=== PATIENT | male | born 1975 ===

== ENCOUNTER 2021-08-10 15:33 | Emergency (ER) | payer SELFPAY ==
[2021-08-10 15:40] VITALS: BP 148/89
== END 2021-08-10 18:37 | disposition left against medical advice (07) ==
LOC: ED 15:33
DX: R42 Dizziness and giddiness (principal); Z53.21 Procedure and treatment not carried out due to patient leaving prior to being seen by health care provider

== ENCOUNTER 2021-08-22 13:13 | Emergency (ER) | payer SELFPAY ==
[2021-08-22 13:27] VITALS: BP 165/104
--- NOTE | 2021-08-22 13:49 | XRay Report ---
CHEST 2 VIEWS INDICATION / CLINICAL INFORMATION: Shortness of breath. COMPARISON: None available. FINDINGS: SUPPORT DEVICES: None. HEART / MEDIASTINUM: No significant abnormality. LUNGS / PLEURA: No significant pulmonary or pleural abnormality. No pneumothorax. ADDITIONAL FINDINGS: No significant additional findings. IMPRESSION: 1. No acute findings. Signer Name: Kuldip Allen MD Signed: 08/22/2021 1:44 PM Workstation Name: [id number]
[2021-08-22 15:06] LABS: Basophils % (Auto) 0.5 % (0.0-1.8); Eosinophils # (Auto) 0.1 K/mm3 (0.0-0.4); Eosinophils % (Auto) 1.3 % (0.0-4.3); Hematocrit 38.9 % (35.5-45.6); Hemoglobin 12.9 gm/dl (11.8-15.2); Lymphocytes # (Auto) 2.4 K/mm3 (1.2-5.4); Lymphocytes % (Auto) 25.1 % (13.4-35.0); Mean Corpuscular HGB Conc 33 % (32-34); Mean Corpuscular Volume 85 fl (84-94); Monocytes # (Auto) 0.6 K/mm3 (0.0-0.8); Monocytes % (Auto) 5.9 % (0.0-7.3); Platelet Count 200 K/mm3 (140-440); Red Blood Count 4.57 M/mm3 (3.65-5.03); Red Cell Distribution Width 15.3 % (13.2-15.2)
[2021-08-22 15:28] LABS: BUN/Creatinine Ratio 8; Blood Urea Nitrogen 11 mg/dL (9-20); Calcium 8.9 mg/dL (8.4-10.2); Hemolysis Index 2
--- NOTE | 2021-08-22 16:38 | Emergency Department Report ---
ED Chest Pain HPI - General Chief Complaint: Dyspnea/Respdistress Stated Complaint: EAR ACHE/DIZZY Time Seen by Provider: 08/22/21 16:31 Source: patient Mode of arrival: Ambulatory Limitations: No Limitations - History of Present Illness Initial Comments: 46-year-old black male with a past medical history of hypertension and hyperlipidemia presents to the emergency department for evaluation of few day history of intermittent chest pain, few month history of right ear pain, and dizziness and headache that started this morning. He states that he ran out of his blood pressure and hyperlipidemia medications last week then 4 to 5 days ago he started started to have intermittent left chest pain. He states that pain was nonradiating, worse with some movement and inspiration, and associated with some shortness of breath. He states that he has had a headache with pressure in his eyes for the last 2 days then he woke up this morning with worsening headache and some dizziness while he was at work today. He also complains of right ear pain and drainage for few months. He states that he had gotten some better but the last couple days pain has been worse and he has had purulent drainage coming from the ear. He did denies fever. MD Complaint: chest pain -: Gradual, days(s) (4-5) Onset: during rest Pain Location: left chest Pain Radiation: none Severity: moderate Severity scale (0 -10): 5 Quality: aching Consistency: intermittent Worsens With: inspiration, movement re: dyspnea. denies: nausea, vomting, diaphoresis, sense of impending doom Other Symptoms: denies: cough, fever, syncope, rash, acid taste in mouth, leg swelling, palpitations, burping Treatments Prior to Arrival: none Aspirin use within the Past 7 Days: (0) No - Related Data Previous Rx's Medication Instructions Recorded Last Taken Type AtorvaSTATin 10 mg PO QHS #30 tab 08/22/21 Unknown Rx Neomy/Polymyx B/Hc (Otic) Soln 4 drops RTEAR QID #1 bottle 08/22/21 Unknown Rx [Cortisporin (Otic) Soln] hydroCHLOROthiazide [HCTZ] 25 mg PO QDAY #30 tablet 08/22/21 Unknown Rx lisinopriL [Lisinopril] 20 mg PO DAILY #30 tab 08/22/21 Unknown Rx methylPREDNISolone [Medrol 4MG 4 mg PO DAILY #1 pack 08/22/21 Unknown Rx DOSEPAK (21 tabs)] Allergies Allergy/AdvReac Type Severity Reaction Status Date / Time No Known Allergies Allergy Verified 08/22/21 13:28 Heart Score - HEART Score History: Slightly suspicious EKG: Normal Age: 45-65 Risk factors: 1-2 risk factors Troponin: < normal limit HEART Score: 2 - EKG Read Time Time EKG Completed: 16:52 EKG Read Time: 16:59 - Critical Actions Critical Actions: 0-3 pts:0.9-1.7%risk of adverse cardiac event.Candidate for discharge ED Review of Systems ROS: Stated complaint: EAR ACHE/DIZZY Other details as noted in HPI Comment: All other systems reviewed and negative Constitutional: denies: chills, diaphoresis, fever, weakness Eyes: denies: vision change ENT: ear pain, congestion. denies: dental pain, hearing loss, epistaxis Respiratory: shortness of breath. denies: cough, orthopnea, SOB with exertion, SOB at rest, stridor, wheezing Cardiovascular: chest pain. denies: palpitations, dyspnea on exertion, orthopnea, edema, syncope, paroxysmal nocturnal dyspnea Gastrointestinal: denies: abdominal pain, nausea, vomiting, diarrhea, hematemesis, melena, hematochezia Genitourinary: denies: urgency, dysuria, frequency, hematuria Musculoskeletal: denies: back pain Skin: denies: rash, lesions Neurological: headache. denies: weakness, numbness, confusion, abnormal gait, vertigo ED Past Medical Hx - Medications Home Medications: Home Medications Medication Instructions Recorded Confirmed Last Taken Type AtorvaSTATin 10 mg PO QHS #30 tab 08/22/21 Unknown Rx Neomy/Polymyx B/Hc (Otic) Soln 4 drops RTEAR QID #1 bottle 08/22/21 Unknown Rx [Cortisporin (Otic) Soln] hydroCHLOROthiazide [HCTZ] 25 mg PO QDAY #30 tablet 08/22/21 Unknown Rx lisinopriL [Lisinopril] 20 mg PO DAILY #30 tab 08/22/21 Unknown Rx methylPREDNISolone [Medrol 4MG 4 mg PO DAILY #1 pack 08/22/21 Unknown Rx DOSEPAK (21 tabs)] ED Physical Exam - General Limitations: No Limitations General appearance: alert, in no apparent distress - Head Head exam: Present: atraumatic, normocephalic - Eye Eye exam: Present: normal appearance. Absent: conjunctival injection - ENT ENT exam: Present: mucous membranes moist. Absent: normal exam (Bilateral nasal mucosal edema and turbinate swelling. Tenderness to bilateral frontal maxillary and nasal areas.), normal orophraynx (Erythema noted to posterior oropharynx) - Expanded ENT Exam Expanded Ear exam: Present: normal external inspection (Pre and postauricular pain with palpation.). Absent: auricular trauma, other TM/Canal exam: Canal Discharge: Right TM, Canal Tenderness: Right TM (Erythema noted to right canal) Mouth exam: Present: normal external inspection Throat exam: Negative: tonsillar erythema, tonsillomegaly, tonsillar exudate, R peritonsillar mass, L peritonsillar mass - Neck Neck exam: Present: normal inspection, tenderness, full ROM. Absent: l ymphadenopathy - Respiratory Respiratory exam: Present: normal lung sounds bilaterally, chest wall tenderness. Absent: respiratory distress, wheezes, rales, rhonchi, stridor - Cardiovascular Cardiovascular Exam: Present: regular rate, normal heart sounds - GI/Abdominal GI/Abdominal exam: Present: soft, normal bowel sounds. Absent: distended, tenderness, guarding, rebound, rigid - Extremities Exam Extremities exam: Present: normal capillary refill. Absent: pedal edema, joint swelling, calf tenderness - Back Exam Back exam: Present: normal inspection. Absent: CVA tenderness (R), CVA tenderness (L), vertebral tenderness - Neurological Exam Neurological exam: Present: alert, oriented X3, normal gait - Psychiatric Psychiatric exam: Present: normal affect, normal mood - Skin Skin exam: Present: warm, dry, intact, normal color ED Course Vital Signs 08/22/21 13:23 Temperature 97.6 F Pulse Rate 91 H Respiratory 18 Rate Blood Pressure 165/104 [Left] O2 Sat by Pulse 98 Oximetry ED Medical Decision Making - Lab Data Result diagrams: 08/22/21 13:58 08/22/21 13:58 - EKG Data EKG shows normal: sinus rhythm - EKG Data Interpretation: no acute changes - Radiology Data Radiology results: report reviewed, image reviewed Chest x-ray: FINDINGS: SUPPORT DEVICES: None. HEART / MEDIASTINUM: No significant abnormality. LUNGS / PLEURA: No significant pulmonary or pleural abnormality. No pne umothorax. ADDITIONAL FINDINGS: No significant additional findings. IMPRESSION: 1. No acute findings. - Medical Decision Making 46-year-old black male with a past medical history of hypertension and hyperlipidemia presents to the emergency department for evaluation of few day history of intermittent chest pain, few month history of right ear pain, and diz ziness and headache that started this morning. He states that he ran out of his blood pressure and hyperlipidemia medications last week then 4 to 5 days ago he started started to have intermittent left chest pain. He states that pain was nonradiating, worse with some movement and inspiration, and associated with some shortness of breath. He states that he has had a headache with pressure in his eyes for the last 2 days then he woke up this morning with worsening headache and some dizziness while he was at work today. He also complains of right ear pain and drainage for few months. He states that he had gotten some better but the last couple days pain has been worse and he has had purulent drainage coming from the ear. He did denies fever. EKG without any acute ischemic changes noted, troponin within normal limits, chest x-ray without any acute abnormalities noted, and heart score of 2. Pain noted to be reproducible at times and worse with some inspiration. Low suspicion for ACS. Complaint and exam consistent with sinusitis. Patient will be treated with 6-day course of steroids. Right ear exam and symptoms consistent with right otitis externa. Patient will be treated with Cortisporin. His home antihypertensive medications and atorvastatin will be refilled. He is advised to take medications as prescribed, follow-up with her primary care provider and cardiology, and return to the emergency department for any concerning symptoms. Critical care attestation.: If time is entered above; I have spent that time in minutes in the direct care of this critically ill patient, excluding procedure time. ED Disposition Clinical Impression: Medication refill Chest pain Qualifiers: Chest pain type: unspecified Qualified Code(s): R07.9 - Chest pain, unspecified Sinusitis Qualifiers: Sinusitis location: frontal Chronicity: acute Recurrence: non-recurrent Qualified Code(s): J01.10 - Acute frontal sinusitis, unspecified Otitis externa Qualifiers: Otitis externa type: unspecified type Chronicity: acute Laterality: right Qualified Code(s): H60.501 - Unspecified acute noninfective otitis externa, right ear Disposition: 01 HOME / SELF CARE / HOMELESS Is pt being admited?: No Does the pt Need Aspirin: No Condition: Stable Instructions: Otitis Externa, [id number], Sinusitis, Adult, [id number], Nonspecific Chest Pain, Adult Additional Instructions: Take medications as prescribed. Follow-up with primary care provider and cardiology for further evaluation and management. Return to the emergency department as needed. Prescriptions: AtorvaSTATin 10 mg PO QHS #30 tab Neomy/Polymyx B/Hc (Otic) Soln [Cortisporin (Otic) Soln] 4 drops RTEAR QID #1 bottle hydroCHLOROthiazide [HCTZ] 25 mg PO QDAY #30 tablet lisinopriL [Lisinopril] 20 mg PO DAILY #30 tab methylPREDNISolone [Medrol 4MG DOSEPAK (21 tabs)] 4 mg PO DAILY #1 pack Referrals: KAMI SIMPSON MD [Staff Physician] - 3-5 Days JOSE LIEBERMAN MD [Staff Physician] - 3-5 Days Forms: Work/School Release Form(ED) Time of Disposition: 17:16
--- NOTE | 2021-08-23 10:13 | Electrocardiograph Report ---
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
== END 2021-08-22 17:25 | disposition home or self-care (01) ==
LOC: ED 13:13
DX: H60.91 Unspecified otitis externa, right ear (principal); J32.9 Chronic sinusitis, unspecified; R07.89 Other chest pain; Z76.0 Encounter for issue of repeat prescription; Z79.899 Other long term (current) drug therapy
CPT/HCPCS: 36415; 71046; 80048; 83735; 84484; 85025; 93005; 99283

== ENCOUNTER 2021-11-14 08:55 | Emergency (ER) | payer SELFPAY ==
--- NOTE | 2021-11-14 10:33 | Cat Scan Report ---
CT head/brain wo con INDICATION: Lightheadedness/Dizziness. TECHNIQUE: Routine CT head without contrast. All CT scans at this location are performed using CT dos e reduction for ALARA by means of automated exposure control. COMPARISON: None. FINDINGS: BRAIN / INTRACRANIAL CONTENTS: No acute hemorrhage, mass effect, midline shift, or hydrocephalus. No appreciable acute large territorial or lacunar infarct. No chronic infarct or focal atrophy. Normal b rain volume and ventricular/sulcal size for age. ORBITS: No significant abnormality of visualized orbits. SINUSES / MASTOIDS: No significant abnormality of visualized sinuses and mastoid air cells. ADDITIONAL FINDINGS: None. IMPRESSION: 1. No acute intracranial abnormality. Signer Name: Kuldip Allen MD Signed: 11/14/2021 10:29 AM Workstation Name: [id number]
[2021-11-14 11:26] LABS: Basophils # (Auto) 0.1 K/mm3 (0.0-0.1); Basophils % (Auto) 1.4 % (0.0-1.8); Eosinophils % (Auto) 0.6 % (0.0-4.3); Hematocrit 39.2 % (35.5-45.6); Hemoglobin 13.2 gm/dl (11.8-15.2); Lymphocytes # (Auto) 1.8 K/mm3 (1.2-5.4); Lymphocytes % (Auto) 27.5 % (13.4-35.0); Mean Corpuscular HGB Conc 34 % (32-34); Mean Corpuscular Volume 86 fl (84-94); Monocytes # (Auto) 0.4 K/mm3 (0.0-0.8); Monocytes % (Auto) 6.1 % (0.0-7.3); Platelet Count 199 K/mm3 (140-440); Red Blood Count 4.55 M/mm3 (3.65-5.03); Red Cell Distribution Width 15.1 % (13.2-15.2)
[2021-11-14 11:37] LABS: INR 0.92 (0.87-1.13)
[2021-11-14 11:38] LABS: Partial Thromboplastin Time 33.1 Sec. (24.2-36.6)
[2021-11-14 11:45] LABS: Creatine Kinase MB 3.9 ng/mL (0.0-4.0)
[2021-11-14 11:59] LABS: Alanine Aminotransferase 42 units/L (7-56); Albumin 4.7 g/dL (3.9-5); BUN/Creatinine Ratio 12; Blood Urea Nitrogen 15 mg/dL (9-20); Calcium 9.5 mg/dL (8.4-10.2); Hemolysis Index 15
--- NOTE | 2021-11-14 17:23 | Emergency Department Report ---
ED Dizziness HPI - General Chief Complaint: Dizziness Stated Complaint: RT EAR PAIN/DIZZY Time Seen by Provider: 11/14/21 17:18 Source: patient Mode of arrival: Ambulatory Limitations: No Limitations - History of Present Illness MD Complaint: dizziness ("Vertigo." He states he has history of same and this feels exactly the same.) -: days(s) (3) Timing: intermittent Description: "room spinning", off-balance History of Same: Yes History of Trauma: No Severity: moderate Improves With: remaining still Worsens With: movement Associated Symptoms: other (He has had some sinus congestion). denies: ataxia, chest pain, confusion, cough, diaphoresis, fever/chills, loss of appetite, malaise, rash, seizure, shortness of breath, syncope, weakness - Related Data Previous Rx's Medication Instructions Recorded Last Taken Type AtorvaSTATin 10 mg PO QHS #30 tab 08/22/21 Unknown Rx hydroCHLOROthiazide [HCTZ] 25 mg PO QDAY #30 tablet 08/22/21 Unknown Rx lisinopriL [Lisinopril] 20 mg PO DAILY #30 tab 08/22/21 Unknown Rx Meclizine [Antivert] 25 mg PO TID PRN 3 Days #30 tab-cap 11/14/21 Unknown Rx Allergies Allergy/AdvReac Type Severity Reaction Status Date / Time No Known Allergies Allergy Verified 11/14/21 09:38 ED Review of Systems ROS: Stated complaint: RT EAR PAIN/DIZZY Other details as noted in HPI Comment: All other systems reviewed and negative Constitutional: denies: chills, fever, malaise Eyes: denies: eye pain, vision change ENT: ear pain (Right), congestion. denies: throat pain, epistaxis Respiratory: denies: cough, shortness of breath Cardiovascular: denies: chest pain, palpitations, dyspnea on exertion Gastrointestinal: denies: abdominal pain, nausea, vomiting, diarrhea, constipation Genitourinary: denies: urgency, dysuria, frequency, hematuria Musculoskeletal: denies: back pain, joint swelling Skin: denies: rash Neurological: vertigo. denies: headache, weakness, numbness, paresthesias, confusion, abnormal gait Psychiatric: denies: anxiety, depression Hematological/Lymphatic: denies: easy bleeding, easy bruising ED Past Medical Hx - Past Medical History Previous Medical History?: Yes Hx Hypertension: Yes - Surgical History Past Surgical History?: No - Family History Family history: no significant - Social History Smoking Status: Never Smoker Substance Use Type: Alcohol (Rare) - Medications Home Medications: Home Medications Medication Instructions Recorded Confirmed Last Taken Type AtorvaSTATin 10 mg PO QHS #30 tab 08/22/21 Unknown Rx hydroCHLOROthiazide [HCTZ] 25 mg PO QDAY #30 tablet 08/22/21 Unknown Rx lisinopriL [Lisinopril] 20 mg PO DAILY #30 tab 08/22/21 Unknown Rx Meclizine [Antivert] 25 mg PO TID PRN 3 Days #30 tab-cap 11/14/21 Unknown Rx ED Physical Exam - General Limitations: No Limitations General appearance: alert, in no apparent distress - Head Head exam: Present: atraumatic, normocephalic - Eye Eye exam: Present: normal appearance, PERRL, EOMI, nystagmus (Lateral). Absent: scleral icterus, conjunctival injection Pupils: Present: normal accommodation - ENT ENT exam: Present: normal orophraynx, mucous membranes moist, normal external ear exam. Absent: TM's normal bilaterally (Right TM dull and slightly retracted) - Neck Neck exam: Present: normal inspection. Absent: tenderness, meningismus - Respiratory Respiratory exam: Present: normal lung sounds bilaterally. Absent: respiratory distress, wheezes, rales, rhonchi - Cardiovascular Cardiovascular Exam: Present: regular rate, normal rhythm, normal heart sounds - GI/Abdominal GI/Abdominal exam: Present: soft, normal bowel sounds. Absent: distended, tenderness, guarding - Extremities Exam Extremities exam: Present: normal inspection, full ROM - Back Exam Back exam: Present: normal inspection - Neurological Exam Neurological exam: Present: alert, oriented X3, CN II-XII intact, normal gait, reflexes normal. Absent: motor sensory deficit - Expanded Neurological Exam Expanded Patient oriented to: Present: person, place, time Speech: Present: fluid speech Cranial nerves: EOM's Intact: Normal, Gag Reflex: Normal, Facial Sensation: Norm al Cerebellar function: Finger to Nose: Normal, Romberg: Normal Upper motor neuron: Devang Neglect: Normal, Pronator Drift: Normal Sensory exam: Upper Extremity Light Touch: Normal, UE 2 Point Discrimination: Normal, LE 2 Point Discrimination: Normal Motor strength exam: RUE: 5, LUE: 5, RLE: 5, LLE: 5 DTR: bicep (R): 4+, bicep (L): 4+, knee (R): 4+, knee (L): 4+ Best Eye Response (Jorge): (4) open spontaneously Best Motor Response (Jorge): (6) obeys commands Best Verbal Response ([place]): (5) oriented Jorge Total: 15 - Psychiatric Psychiatric exam: Present: normal affect, normal mood - Skin Skin exam: Present: warm, dry, intact, normal color ED Course Vital Signs 11/14/21 09:36 Temperature 98.5 F Pulse Rate 75 Respiratory 18 Rate Blood Pressure 141/100 [Left] O2 Sat by Pulse 99 Oximetry - Reevaluation(s) Reevaluation #1: 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 His CK was elevated quite significantly. He has had some upper respiratory congestion which led to the vertigo. Discussed with him the possibility of COVID and that he should take a home test. If negative repeat x3 days and quarantine in the interim. Repeat EKG and troponin unremarkable. 11/14/21 19:02 ED Medical Decision Making - Lab Data Result diagrams: 11/14/21 10:35 11/14/21 10:35 - EKG Data -: EKG Interpreted by La EKG shows normal: sinus rhythm Rate: normal - EKG Data When compared to previous EKG there are: no significant change (As compared to EKG August 22. Consistent with left anterior fascicular block.) Interpretation: no acute changes - Radiology Data Radiology results: report reviewed - Medical Decision Making Labs unremarkable with the exception of a CK of 850. CT brain and chest x-ray normal. This is likely vertigo secondary to URI. Consider COVID. Patient plans to take a COVID test when he gets home. [facility] [address] [address] Cat Scan Report Signed Patient: SREEDHAR JUDGE MR#: [id number] : 1975 Acct:[id number] Age/Sex: 46 / M ADM Date: 11/14/21 Loc: ED Attending Dr: Ordering Physician: ED MD GUTIERREZ Date of Service: 11/14/21 Procedure(s): CT head/brain wo con Accession Number(s): [id number] cc: ED DOC, CT head/brain wo con INDICATION: Lightheadedness/Dizziness. TECHNIQUE: Routine CT head without contrast. All CT scans at this location are performed using CT dose reduction for ALARA by means of automated exposure control. COMPARISON: None. FINDINGS: BRAIN / INTRACRANIAL CONTENTS: No acute hemorrhage, mass effect, midline shift, or hydrocephalus. No appreciable acute large territorial or lacunar infarct. No chronic infarct or focal atrophy. Normal brain volume and ventricular/sulcal size for age. ORBITS: No significant abnormality of visualized orbits. SINUSES / MASTOIDS: No significant abnormality of visualized sinuses and mastoid air cells. ADDITIONAL FINDINGS: None. IMPRESSION: 1. No acute intracranial abnormality. Signer Name: Kuldip Allen MD Signed: 11/14/2021 10:29 AM Workstation Name: [id number] Transcribed By: BLADE Dictated By: Kuldip Allen MD Electronically Authenticated By: Kuldip Allen MD Signed Date/Time: 11/14/21 1029 DD/ 1028 TD/TT: - Differential Diagnosis Dizziness. Vertigo. Viral syndrome. URI. Consider COVID. Critical care attestation.: If time is entered above; I have spent that time in minutes in the direct care of this critically ill patient, excluding procedure time. ED Disposition Clinical Impression: Vertigo, Labyrinthitis of right ear, URI (upper respiratory infection) Disposition: 01 HOME / SELF CARE / HOMELESS Is pt being admited?: No Condition: Stable Instructions: Viral Respiratory Infection, Fype-It-Msks, Labyrinthitis, [id number], COVID-19 Frequently Asked Questions, How to Perform the Don Maneuver Additional Instructions: Recommend COVID test at home. Meclizine prescription. Hallpike maneuvers Prescriptions: Meclizine [Antivert] 25 mg PO TID PRN 3 Days #30 tab-cap PRN Reason: Vertigo Forms: Work/School Release Form(ED) Time of Disposition: 19:11
[2021-11-14] MEDS ORDERED: MECLIZINE 25 MG TAB PO ONE (18:00)
[2021-11-14 19:40] VITALS: BP 137/91
--- NOTE | 2021-11-15 09:53 | Electrocardiograph Report ---
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
--- NOTE | 2021-11-15 09:56 | Electrocardiograph Report ---
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
== END 2021-11-14 19:40 | disposition home or self-care (01) ==
LOC: ED 08:55
DX: H83.01 Labyrinthitis, right ear (principal); J06.9 Acute upper respiratory infection, unspecified; R42 Dizziness and giddiness; I10 Essential (primary) hypertension; Z72.89 Other problems related to lifestyle; Z79.899 Other long term (current) drug therapy; R79.1 Abnormal coagulation profile
CPT/HCPCS: 36415; 70450; 80053; 82550; 82553; 84484; 85025; 85610; 85730; 93005; 99284